=== PATIENT | female | born 1955 | race Caucasian/White ===

== ENCOUNTER → 2018-01-11 | Day surgery (SDC) | payer OTHER, MEDICARE ==
[~2018-01-11] MED LIST: ACYCLOVIR200 MG PO; ALPRAZOLAM0.5 MG PO; AMBIEN10 MG PO; BACTRIM DS TAB1 EACH PO; BENTYL10 MG PO; BYSTOLIC10 MG PO; Biotin PO; CARAFATE1 GM/10 ML PO; COLACE100 MG PO; DORZOLAMIDE-TIM10 ML OP; FAMOTIDINE 20 MG/2 ML VIAL IV ONE; FLAGYL250 MG PO; HYDROCORTISONE SOD SUCCINATE 100 MG VIAL ONE; IMMUNOGLOBULIN IV; IVIG; LAMISIL250 MG PO; LIDOCAINE VISCOUS; LIDOCAINE20 MG/1 ML PO; MAGNESIUM OXIDE PO; MESTINON60 MG PO; METHIMAZOLE5 MG PO; MIACALCIN PO; MIACALCIN3.7 ML; MITIGARE PO; MOBIC7.5 MG PO; MULTIVITAMINS1 EAC8 PO; NEXIUM40 MG PO; NYSTATIN1 EAC1; ONDANSETRON HCL INJ 2 MG/ML VIAL ONE; OS-CAL 500+D T1 EACH PO; PENTASA500 MG PO; PEPCID20 MG PO; POTASSIUM CHLO20 ME1 PO; PREDNISONE20 MG PO; PRESERVISION A1 EACH PO; PROPOFOL IV EMULSION 10 MG/ML 50 ML VIAL ONE; SOLU-CORTEF100 MG IM; SYMBICORT 16010.2 GM INH; SYMBICORT INH; Symbicort INH; ULTIMATE FLORA; ULTRAM 50MG50 MG PO; VENTOLIN HFA18 GM INH; XOPENEX0.63 MG/3 INH; ZOFRAN ODT4 MG PO
[2018-01-11 09:55] VITALS: BP 126/70
--- OUTSIDE RECORDS SUMMARY | 2018-01-16 12:55 | XMS REPORT ---
Author Author [facility] Address Unknown Phone Unavailable Care Team Providers Care Source Inspector Name Role Phone Unavailable Unavailable Payers Payer Name Policy Type Policy Number Effective Date Expiration Date Problems This patient has no known problems. Allergies, Adverse Reactions, Alerts Allergy Name Allergy Type Status Severity Reaction(s) Onset Date Inactive Date Treating Clinician Comments Phenothiazines DA Active U 2013-06-26 00:00:00 iodine DA Active U 2013-06-26 00:00:00 droperidol DA Active U 2013-06-26 00:00:00 morphine DA Active U 2013-06-26 00:00:00 clarithromycin DA Active U 2013-06-26 00:00:00 metoclopramide DA Active U 2013-06-26 00:00:00 levofloxacin DA Active U 2013-06-26 00:00:00 .PHENOTHIZ DA Active U 2013-06-26 00:00:00 AVELOX DA Active U 2013-06-26 00:00:00 BIAXIN DA Active U 2013-06-26 00:00:00 DROPERIDOL DA Active U 2013-06-26 00:00:00 GADOLINIUM ZEOLITE DA Active U 2013-06-26 00:00:00 GAMMA GLOBULIN DA Active U 2013-06-26 00:00:00 IODINE CONTRAST DA Active U 2013-06-26 00:00:00 LEVAQUIN DA Active U 2013-06-26 00:00:00 MORPHINE DA Active U 2013-06-26 00:00:00 No Known Food Allergies DA Active U 2007-09-11 00:00:00 No Known Other Allergies DA Active U 2007-09-11 00:00:00 REGLAN DA Active U 2007-09-11 00:00:00 TORECAN DA Active U 2007-09-11 00:00:00 Medications This patient has no known medications.
--- OUTSIDE RECORDS SUMMARY | 2018-01-16 12:55 | XMS REPORT | Clinical Summary ---
Author Author [facility] Address Unknown Phone Unavailable Care Team Providers Care Qc Tech Name Role Phone Tesha Oden MD PCP Allergies Active Allergy Reactions Severity Noted Date Comments Clarithromycin Anxiety, Palpitations, High Rash, Shortness Of Breath, Tinnitus Droperidol Anxiety, Other (See Low Comments) Gadolinium-Containing 01/19/2017 Contrast Media Iodine Itching, Palpitations, High Rash, Shortness Of Breath Iodine And Iodide Itching, Palpitations, High Containing Products Rash, Shortness Of Breath, Tinnitus Levofloxacin Anxiety, Palpitations, High Rash, Shortness Of Breath, Tinnitus Metoclopramide Hcl Anxiety, Other (See Low Comments) Moxifloxacin Anxiety, Hives, Itching, High Palpitations, Rash, Shortness Of Breath, Tinnitus Phenothiazines Anxiety, Other (See Low Comments) Thiethylperazine Maleate 01/19/2017 Current Medications Prescription Sig. Disp. Refills Start End Date Status Date ALPRAZolam (XANAX) 0.5 MG TK 1 T PO QD PRN 1 09/29/19 Active tablet 17 dicyclomine (BENTYL) 10 TK 1 C PO TID BETWEEN 3 10/19/19 Active MG capsule MEALS 17 sulfamethoxazole-trimetho TK 1 T PO QD 0 10/19/19 Active prim (BACTRIM DS) 800-160 17 mg per tablet traMADol (ULTRAM) 50 mg TK 1 T PO TID 2 10/14/19 Active tablet 17 triamcinolone (KENALOG) JENNIFER A THIN LAYER AA TID 1 10/15/19 Active 0.1 % paste QD 17 PREDNISONE ORAL Take by mouth. Active immune globulin, Infuse 0.5 g/kg into a Active PRIVIGEN, 10 % solution venous catheter once. methIMAzole (TAPAZOLE) 5 Take 5 mg by mouth 3 Active MG tablet (three) times a day. colchicine (MITIGARE) 0.6 Take 0.6 mg by mouth Active mg capsule daily. nebivolol (BYSTOLIC) 5 MG Take 5 mg by mouth daily. Active tablet esomeprazole (NexIUM) 40 Take 40 mg by mouth daily Active MG capsule before breakfast. meloxicam (MOBIC) 7.5 mg Take 7.5 mg by mouth Active tablet daily. potassium chloride Take 20 mEq by mouth 2 Active (KLOR-CON) 20 mEq packet (two) times a day. calcitonin, salmon, 1 spray into each nostril Active (MIACALCIN) 200 daily. unit/actuation nasal spray famotidine (PEPCID) 40 MG Take 40 mg by mouth Active tablet daily. ondansetron (ZOFRAN) 4 MG Take 4 mg by mouth every Active tablet 8 (eight) hours as needed for nausea or vomiting. Active Problems Not on file Encounters Date Type Specialty Care Team Description 01/19/2017 Hospital Radiology Nabil Hutchinson MD Lumbar radiculopathy Encounter 01/12/2017 Transcribe Neurosurgery Nabil Hutchinson MD Lumbar radiculopathy Orders (Primary Dx) after 01/10/2017 Family History Medical History Relation Name Comments Arthritis Daughter Heart disease Daughter Lupus Daughter Heart disease Father Parkinsonism Father Relation Name Status Comments Daughter Father Alive Mother Alive sjrogens Social History Tobacco Use Types Packs/Day Years Used Date Former Smoker Sex Assigned at Date Recorded Not on file Last Filed Vital Signs Vital Sign Reading Time Taken Blood Pressure 106/61 01/19/2017 9:45 AM CDT Pulse 88 01/19/2017 9:45 AM CDT Temperature 36.4 C (97.6 F) 01/19/2017 9:10 AM CDT Respiratory Rate 18 01/19/2017 9:45 AM CDT Oxygen Saturation 93% 01/19/2017 9:45 AM CDT Inhaled Oxygen - - Concentration Weight - - Height - - Body Mass Index - - Plan of Treatment Health Maintenance Due Date Last Done Comments CERVICAL CANCER SCREENING 1977 BREAST CANCER SCREENING 2006 COLON CANCER SCREENING 2006 SHINGRIX VACCINE (#1) 2006 ZOSTER VACCINE 2016 INFLUENZA VACCINE 11/01/2017 Procedures Procedure Name Priority Date/Time Associated Diagnosis Comments HC INJ EPID LUM/SACRAL Routine 01/19/2017 Lumbar radiculopathy Results for this UNI W IMG 9:08 AM CDT procedure are in the results section. after 01/10/2017 Results * IR Nerve Root Block (01/19/2017 9:08 AM) Narrative Performed At EXAMINATION:Fluoroscopic-guided left L5-S1 transforaminal epidural steroid HM RADIANT and anesthetic injection. CLINICAL HISTORY:M54.16 Radiculopathylumbar region, left L5-S1 transforaminal injection COMPARISON:None. Findings: Informed consent was obtained. Lower back was prepped and draped in usual sterile fashion. 1% lidocaine was used for local anesthesia. Conscious sedation was performed with incremental doses of Versed and fentanyl given intravenously by the radiology nurse. The patient was monitored with continuous pulse oximetry, heart rate monitoring and blood pressure monitoring. The physician spent face to face time with the patient for a total of15 minutes. Under intermittent fluoroscopic guidance, a 25-gauge, 5 inch needles advanced into the lateral aspect of the left L5-S1 foramen. 2 cc of Omnipaque 240 were injected and showed good opacification of the left L5 nerve root sleeve. Then 0.75 cc of Marcaine 0.75% and 4 mg of dexamethasone were injected. No complications. Total fluoroscopic time was 0.7 minutes. Total air kerma was 104 mGy. IMPRESSION: Successful fluoroscopic guided left L5-S1 transforaminal epidural steroid and anesthetic injection.. [id number] Procedure Note Hm Interface, Radiology Results Incoming - 01/19/2017 9:34 AM CDT EXAMINATION: Fluoroscopic-guided left L5-S1 transforaminal epidural steroid and anesthetic injection. CLINICAL HISTORY: M54.16 Radiculopathy lumbar region, left L5-S1 transforaminal injection COMPARISON: None. Findings: Informed consent was obtained. Lower back was prepped and draped in usual sterile fashion. 1% lidocaine was used for local anesthesia. Conscious sedation was performed with incremental doses of Versed and fentanyl given intravenously by the radiology nurse. The patient was monitored with continuous pulse oximetry, heart rate monitoring and blood pressure monitoring. The physician spent face to face time with the patient for a total of 15 minutes. Under intermittent fluoroscopic guidance, a 25-gauge, 5 inch needles advanced into the lateral aspect of the left L5-S1 foramen. 2 cc of Omnipaque 240 were injected and showed good opacification of the left L5 nerve root sleeve. Then 0.75 cc of Marcaine 0.75% and 4 mg of dexamethasone were injected. No complications. Total fluoroscopic time was 0.7 minutes. Total air kerma was 104 mGy. IMPRESSION: Successful fluoroscopic guided left L5-S1 transforaminal epidural steroid and anesthetic injection.. [facility]-[id number] Performing Organization Address City/State/Zipcode Phone Number [facility] [phone] [place] [address] after 01/10/2017 Insurance Payer Benefit Subscriber ID Type Phone Address Plan / Group AETNA AETNA xxxxxxxxxx HMO HMO,POS,EP O, MC/EC MEDICARE MEDICARE xxxxxxxxxx Medicare [place], [place] PART A AND B
== END | disposition home or self-care (01) ==
LOC: OR 05:57
PROVIDERS: ATTEND Internal Medicine Gastroenterology
DX: K50.90 Crohn's disease, unspecified, without complications (principal); K64.8 Other hemorrhoids; J45.909 Unspecified asthma, uncomplicated; E73.9 Lactose intolerance, unspecified; K21.9 Gastro-esophageal reflux disease without esophagitis; E66.3 Overweight; G70.00 Myasthenia gravis without (acute) exacerbation; Z88.1 Allergy status to other antibiotic agents; Z91.041 Radiographic dye allergy status; Z88.8 Allergy status to other drugs, medicaments and biological substances; Z91.048 Other nonmedicinal substance allergy status; Z68.29 Body mass index [BMI] 29.0-29.9, adult; Z85.3 Personal history of malignant neoplasm of breast; Z87.891 Personal history of nicotine dependence; Z80.0 Family history of malignant neoplasm of digestive organs
CPT/HCPCS: 45378; 93005; J1720; J2405